=== PATIENT | male | born 2000 ===

== ENCOUNTER 2025-07-06 22:48 | Inpatient (IN) | payer MEDICAID ==
[2025-07-06] MEDS ORDERED: ZOLPIDEM TARTRATE 10 MG TABLET PO PRN (23:15)
[2025-07-07] MEDS ORDERED: LORazepam 2 MG/ML VIAL ONE (01:01)
[2025-07-07 01:50] VITALS: BP 100/59; PULSE 61; RESP 16; TEMP 97.5; O2SAT 97
[2025-07-07 01:56] LABS: GLUCOMETER DEV NAME(LOC) POC.BV; POC SARS-COV2 AG, FIA NEGATIVE (NEGATIVE)
[2025-07-07] MEDS ORDERED: PNEUMOCOCCAL VACCINE POLYVALENT 0.5 ML SYRINGE [PPSV23] IM. ONE (03:15)
[2025-07-07] MEDS ORDERED: NICOTINE 14 MG/24 HOUR PATCH TD PRN (06:45)
[2025-07-07] MEDS ORDERED: ALBUTEROL SULFATE HFA 90 MCG/PUFF 8 GM INHALER IH PRN (06:45)
[2025-07-07] MEDS ORDERED: MAGNESIUM HYDROXIDE SUSPENSION 30 ML UDCUP PO PRN (06:45)
[2025-07-07] MEDS ORDERED: PETROLATUM,WHITE 28 GM JELLY TP PRN (06:45)
[2025-07-07] MEDS ORDERED: GuaiFENesin/D-METHORPHAN [SUGAR-FREE] 200-20MG/10 ML SYRUP UDCUP PO PRN (06:45)
[2025-07-07] MEDS ORDERED: ONDANSETRON 4 MG TABLET PO PRN (06:45)
[2025-07-07] MEDS ORDERED: ACETAMINOPHEN 325 MG TABLET PO PRN (06:45)
[2025-07-07] MEDS ORDERED: DOCUSATE SODIUM 100 MG CAPSULE PO PRN (06:45)
[2025-07-07] MEDS ORDERED: MAG HYDROX/ALUMINUM HYD/SIMETH ES 30 ML SUSPENSION UDCUP PO PRN (06:45)
[2025-07-07] MEDS ORDERED: IBUPROFEN 400 MG TABLET PO PRN (06:45)
[2025-07-07] MEDS ORDERED: LOPERAMIDE HCL 2 MG CAPSULE PO PRN (06:45)
[2025-07-07 08:42] VITALS: RESP 18
[2025-07-07 20:13] VITALS: RESP 18
[2025-07-08 08:12] VITALS: BP 100/60; PULSE 64; RESP 18; TEMP 97.3; O2SAT 98
[2025-07-08 09:12] LABS: PLATELET COUNT (AUTO) 216 K/uL (150-450); RED BLOOD CELL COUNT(AUTO) 5.23 MIL/uL (4.50-5.90); RED CELL DISTRIBUTION WIDTH 14.0 % (11.5-14.5); WHITE BLOOD COUNT (AUTO) 6.9 K/uL (4.5-11.0)
[2025-07-08 09:43] LABS: ASPARTATE AMINOTRANSFERASE 22 U/L (15-37); CALCIUM, TOTAL 8.5 mg/dL (8.8-10.5); CHOL/HDL RATIO 4.1 (4.2-7.3); CREATININE 0.86 mg/dL (0.60-1.30); GLOMERULAR FILTR. RATE CALC > 60 mL/min (>60); GLUCOSE,RANDOM 81 mg/dL (70-110); LDL CHOL (CALC.) 77 mg/dL (0-130); SODIUM SERUM 140 mmol/L (136-145); TOTAL PROTEIN, SERUM 6.6 g/dL (6.4-8.2); UREA NITROGEN, BLOOD 9 mg/dL (7-18)
[2025-07-08 10:16] LABS: ALCOHOL, BLOOD (SERUM) < 3 mg/dL (0-10)
[2025-07-08] MEDS ORDERED: LORazepam 2 MG/ML VIAL ONE (13:01)
[2025-07-08] MEDS: LORazepam 2 MG/ML VIAL IM ONE (13:27)
[2025-07-08] MEDS: LURASIDONE HCL 60 MG TABLET PO SCH (20:50)
[2025-07-09 08:53] VITALS: BP 116/85; PULSE 85; RESP 18; TEMP 97.5; O2SAT 98
[2025-07-09 09:02] VITALS: BP 116/85; PULSE 85; RESP 17; TEMP 97.5; O2SAT 98
[2025-07-09] MEDS: PALIPERIDONE PALMITATE 234 MG/1.5 ML SYRINGE IM ONE (15:37)
[2025-07-09] MEDS ORDERED: LURA60TA PO ×2 (16:15)
[2025-07-11] MEDS ORDERED: PALI234D IM (07:24)
== END 2025-07-09 16:23 | disposition home or self-care (01) | DRG 750 ==
LOC: B3A 23:13
PROVIDERS: ADMIT Psychiatry & Neurology Child & Adolescent Psychiatry; ATTEND Psychiatry & Neurology Child & Adolescent Psychiatry
PROC: GZ58ZZZ Individual Psychotherapy, Cognitive-Behavioral (ICD-10-PCS; principal; 2025-07-07)
PROC: GZ56ZZZ Individual Psychotherapy, Supportive (ICD-10-PCS; 2025-07-07)
DX: F31.2 Bipolar disorder, current episode manic severe with psychotic features (principal); E83.51 Hypocalcemia; F19.10 Other psychoactive substance abuse, uncomplicated; I95.9 Hypotension, unspecified; F12.90 Cannabis use, unspecified, uncomplicated; F14.90 Cocaine use, unspecified, uncomplicated; Z20.822 Contact with and (suspected) exposure to COVID-19; Z79.899 Other long term (current) drug therapy
CPT/HCPCS: 80053; 80061; 83036; 84439; 84443; 85025; 86592; G0480; J1200; J1630; J2060